=== PATIENT | male | born 1995 | race Hispanic/Latino ===

== ENCOUNTER 2018-08-23 18:55 | Emergency (ER) | payer SELFPAY ==
--- NOTE | 2018-08-23 19:25 | RAD ---
RIGHT HAND THREE VIEWS: 08/23/18 INDICATION: Right hand injury while playing football. FINDINGS: There is a comminuted, mildly displaced intra-articular thumb metacarpal base fracture. No additional fracture is evident. IMPRESSION: Comminuted intra-articular thumb metacarpal base fracture. POS: [facility]
== END 2018-08-23 20:50 | disposition home or self-care (01) ==
LOC: ERS 18:55
DX: S62.231A Other displaced fracture of base of first metacarpal bone, right hand, initial encounter for closed fracture (principal); W51.XXXA Accidental striking against or bumped into by another person, initial encounter
CPT/HCPCS: 29125

== ENCOUNTER 2018-12-07 19:07 | Emergency (ER) | payer SELFPAY ==
[2018-12-07] MEDS ORDERED: Lorazepam 2 MG/ML VIAL ONE ×2 (19:26→19:39)
[2018-12-07 19:38] LABS: #Basophils 0.1 thou/uL (0.0-0.2); #Eosinphils 0.1 thou/uL (0.0-0.7); #Lymphocytes 2.1 thou/uL (1.20-3.40); #Monocytes 0.4 thou/uL (0.11-0.59); #Neutrophils 4.4 thou/uL (1.40-6.50); %Basophils 1.4 % (0.0-1.0); %Eosinophils 1.1 % (0.0-10.0); %Monocytes 5.3 % (0.0-10.0); %Neutrophils 62.2 % (42.0-75.0); Hemoglobin 15.1 g/dL (14.0-18.0); Mean Corpuscular HGB CONC 34.3 g/dL (32.0-36.0); Mean Corpuscular Hemoglobin 32.1 pg (27.0-31.0); Mean Corpuscular Volume 93.5 fL (78.0-98.0); Mean Platelet Volume 8.3 fL (7.4-10.4); Platelet Count 272 thou/uL (130-400); RBC Distribution Width 12.1 % (11.5-14.5); Red Blood Cell (RBC) Count 4.72 mill/uL (4.70-6.10); White Blood Cell (WBC) Count 7.1 thou/uL (4.8-10.8)
[2018-12-07 19:58] LABS: Acetaminophen Less than 6.0 mcg/mL (10.0-30.0); Alcohol 188 mg/dL (Less than 10); CK (CPK) 203 U/L (30-200); Salicylate Less than 8.0 mg/dL (15.0-30.0)
[2018-12-07 19:59] LABS: ALT (SGPT) 27 U/L (8-55); AST (SGOT) 16 U/L (5-34); Albumin 4.6 g/dL (3.5-5.0); Alkaline Phosphatase 86 U/L (40-150); Anion Gap 17 mmol/L (10-20); BUN (Urea Nitrogen) 11 mg/dL (8.9-20.6); Bilirubin, Total 0.2 mg/dL (0.2-1.2); Calc. Creatinine Clearance 0 mL/min (70-130); Calcium 9.5 mg/dL (7.8-10.44); Carbon Dioxide 21 mmol/L (22-29); Chloride 109 mmol/L (98-107); Estimated GFR-MDRD Greater than 90; Globulin 2.5 g/dL (2.4-3.5); Glucose 109 mg/dL (70-105); Lipase 4 U/L (8-78); Protein, Total 7.1 g/dL (6.0-8.3); Sodium 143 mmol/L (136-145)
== END 2018-12-07 20:21 | disposition home or self-care (01) ==
LOC: ERS 19:07
DX: F10.129 Alcohol abuse with intoxication, unspecified (principal); R10.13 Epigastric pain
CPT/HCPCS: 36415; 80053; 80307; 82550; 83690; 84484; 85025; 93005; 96374; J2060

== ENCOUNTER 2019-02-19 17:09 | Emergency (ER) | payer SELFPAY ==
[2019-02-19] MEDS ORDERED: Ondansetron PF 4 MG/2 ML Vial ONE (18:17)
[2019-02-19 18:49] LABS: Hemoglobin 16.3 g/dL (14.0-18.0); Mean Corpuscular HGB CONC 35.5 g/dL (32.0-36.0); Mean Corpuscular Hemoglobin 32.7 pg (27.0-31.0); Mean Corpuscular Volume 92.3 fL (78.0-98.0); Mean Platelet Volume 8.9 fL (7.4-10.4); Platelet Count 301 thou/uL (130-400); RBC Distribution Width 12.2 % (11.5-14.5); Red Blood Cell (RBC) Count 4.98 mill/uL (4.70-6.10); White Blood Cell (WBC) Count 21.3 thou/uL (4.8-10.8)
[2019-02-19 19:04] LABS: ALT (SGPT) 32 U/L (8-55); AST (SGOT) 16 U/L (5-34); Albumin 5.2 g/dL (3.5-5.0); Alkaline Phosphatase 97 U/L (40-150); Anion Gap 18 mmol/L (10-20); BUN (Urea Nitrogen) 18 mg/dL (8.9-20.6); Bilirubin, Total 0.5 mg/dL (0.2-1.2); CK (CPK) 164 U/L (30-200); Calc. Creatinine Clearance 0 mL/min (70-130); Calcium 10.6 mg/dL (7.8-10.44); Carbon Dioxide 21 mmol/L (22-29); Chloride 106 mmol/L (98-107); Estimated GFR-MDRD 42; Globulin 3.1 g/dL (2.4-3.5); Glucose 105 mg/dL (70-105); Potassium 4.1 mmol/L (3.5-5.1); Protein, Total 8.3 g/dL (6.0-8.3); Sodium 141 mmol/L (136-145)
[2019-02-19 19:16] LABS: Band 16 % (5-11); Lymphocytes 8 % (21-51); MDiff Complete? YES; Monocytes 5 % (0-10); Neutrophil 71 % (42-75); Platelet Morphology Comment Appears Adequate; Polychromasia SLIGHT = 2-3 cells (100X) (0-2/hpf)
== END 2019-02-19 20:13 | disposition home or self-care (01) ==
LOC: ERS 17:09
DX: E86.0 Dehydration (principal); D72.829 Elevated white blood cell count, unspecified; I10 Essential (primary) hypertension
CPT/HCPCS: 36415; 80053; 82550; 85025; 96361; 96374; J2405